=== PATIENT | female | born 1980 | race Caucasian/White ===

== ENCOUNTER 2017-05-24 09:01 | Outpatient (RCR) | payer BC | END 2017-06-26 10:51 | disposition home or self-care (01) | LOC: SPU 09:01 | PROVIDERS: ATTEND Student in an Organized Health Care Education/Training Program | DX: O20.0 Threatened abortion (principal) ==

== ENCOUNTER → 2017-05-24 | Outpatient (CLI) | payer BC | LOC: LAB 12:01 | PROVIDERS: ATTEND Student in an Organized Health Care Education/Training Program | DX: O20.0 Threatened abortion (principal) | CPT/HCPCS: 36415; 84702; 86850; 86900; 86901 ==

== ENCOUNTER → 2017-05-26 | Outpatient (CLI) | payer BC | LOC: LAB 11:40 | PROVIDERS: ATTEND Student in an Organized Health Care Education/Training Program | DX: O20.0 Threatened abortion (principal) | CPT/HCPCS: 36415; 84702 ==

== ENCOUNTER → 2017-09-12 | Outpatient (CLI) | payer BC ==
[~2017-09-12] MED LIST: PREN-127 PO
--- NOTE | 2017-09-12 14:42 | RADIOLOGY IMAGING REPORT ---
FACILITY: [facility] PATIENT NAME: Terri Thurman : 1980 MR: [id number] V: [id number] EXAM DATE: ORDERING PHYSICIAN: CAMMIE LOVETT TECHNOLOGIST: Location: [facility] - [place] Patient: Terri Thurman : 1980 Visit/Account:[id number] Date of Sevice: 09/12/2017 OB ANATOMICAL SURVEY HISTORY: Encounter for multigravida of advanced maternal age COMPARISON: None. TECHNIQUE: Transabdominal imaging was performed for assessment of the fetus and maternal pelvic s tructures. Transvaginal imaging was not performed. FINDINGS: Intrauterine gestations: One. presentation: Transverse with the head towards maternal right. heart rate: 139 bpm. Amniotic fluid volume: Not measured Placenta: Posterior. The distal tip of the placenta appears to cover the cervical os this is best ap preciated on images 77 through 80. Uterus: Gravid, otherwise grossly unremarkable where visualized. Maternal adnexa/ovaries: Grossly unremarkable, ovaries not visualized. Cervix: Grossly long and closed. Gestational Parameters: BPD: 5.19 HC: 20.42 AC: 17.35 FL: 3.89 Average ultrasound age (AUA): 22 weeks/ three days Estimated age based on LMP: 21 weeks/ six days Estimated weight (EFW): 498 grams +/- 73 grams Anatomic Survey: Intracranial structures, 4-chamber heart, stomach, kidneys, urinary bladder, spine, 3-vessel cord and cord insertion are unremarkable. Two upper and two lower extremities visualized. IMPRESSION: Single viable fetus in transverse presentation with an estimated gestational age of 22 weeks and thre e days by measurements. The placenta is posterior however the distal tip of the placenta appears to cover the cervical os as described above. Follow-up imaging recommended for further evaluation of pl acental location Report Dictated By: Mora Weeks MD at 09/12/2017 2:28 PM Report E-Signed By: Mora Weeks MD at 09/12/2017 2:38 PM WSN:AMICIVN
== END ==
LOC: RAD 09:55
PROVIDERS: ATTEND Obstetrics & Gynecology
DX: Z02.9 Encounter for administrative examinations, unspecified (principal)
CPT/HCPCS: 76811

== ENCOUNTER → 2017-10-24 | Outpatient (CLI) | payer BC ==
[~2017-10-24] MED LIST changes: +DIPH0.5D12 IM
[2017-10-24 10:55] LABS: PLATELET COUNT, AUTOMATED 165 K/uL (150-450)
== END ==
LOC: LAB 09:53
PROVIDERS: ATTEND Obstetrics & Gynecology
DX: O09.529 Supervision of elderly multigravida, unspecified trimester (principal)
CPT/HCPCS: 36415; 82950; 85025

== ENCOUNTER → 2017-12-18 | Outpatient (CLI) | payer BC | LOC: LAB 11:09 | PROVIDERS: ATTEND Student in an Organized Health Care Education/Training Program | DX: O09.529 Supervision of elderly multigravida, unspecified trimester (principal) | CPT/HCPCS: 87081 ==

== ENCOUNTER 2018-01-08 10:55 | Inpatient (IN) | payer BC ==
[~2018-01-08] VITALS: Ht 172.7 cm; Wt 67.6 kg
[2018-01-08 11:30] VITALS: BP 122/77; Ht 172.7 cm; Wt 67.6 kg
--- NOTE | 2018-01-08 13:44 | History & Physical ---
History of Present Illness Chief Complaint Contractions History of Present Illness 37yo at 38w5d presents planes of regular uterine contractions. She denies any vaginal bleeding, loss of fluid or preeclampsia symptoms. She reports good movement. record was reviewed, her care is by IMG. History Patient's Blood Type: A Positive Rubella Status: Immune Group B Strep Screen: Negative Obstetrical History: G1: 41wk , 5#9oz G2: 39wk , 6#4oz G3: 2013 SAB G4: Current Past Medical History: PMH: Asthma, eczema PSH: Sinus surgery, left ovarian cyst removal 2012 Allergies: Coded Allergies: No Known Drug Allergies (Unverified , 09/03/17) Social History: No T/E/D. . Family History: Adopted Pt has unknown family hx Med Rec Home Meds Reported Medications Vits W-Ca,Fe,Fa(<1MG) ( VITAMINS) 1 Each Tablet, 1 EACH PO DAILY, TAB 09/02/17 Review of Systems Constitutional: No Fever Neurological: No Syncope Eyes: No Vision Change Cardiovascular: No Chest Pain Respiratory: No Shortness of Breath Gastrointestinal: No Nausea, No Vomiting, No Diarrhea Genitourinary: No Dysuria Musculoskeletal: No Pain Psychiatric: No Depression, No Anxiety Exam General Exam Vital Signs VS reviewed General Apperance: Alert/Awake/No Acute Distress Neuro: No Gross deficits Eyes: Normal Extraocular Movement & Vison Cardiovascular: Regular Rate and Rhythm Respiratory: No Respiratory Distress, Clear to Auscultation Abdomen: Soft, Non-Tender, Non-Distended, Gravid - Non-Tender : Normal Musculoskeletal: No Weakness/Pain Extremities: No Cyanosis,Clubbing or Edema Integumentary: Skin Intact without Lesions or Rash Psychological: Alert & Oriented X3, Appropriate Mood & Affect Cervical Dialation: 4 Cervical Effacement (%): 70 Cervical Consistency: Soft Cervical Position: Mid Station: -2 Presentation: Vertex Uterine Contractions(Q min): 3 Uterine Contraction Strength: Moderate UC Resting Tone: Soft Fetus Feeling Movement?: Yes FHT Category: I Assessment and Plan Problems: (1) Spontaneous onset of labor Assessment & Plan: 37yo at 38w5d presents in labor. Epidural if she desires. Anticipate . (2) 38 weeks gestation of CAMMIE LOVETT MD Jan 08, 2018 13:44
[2018-01-08] MEDS ORDERED: ceFAZolin(*) 2GM/D5W 50ML 50 ML IVPB PRN (13:49)
[2018-01-08] MEDS ORDERED: FAMOTIDINE(*) 20MG/50ML PREMIX 50 ML IVPB PRN (13:49)
[2018-01-08] MEDS ORDERED: OXYTOCIN 30 UNIT/D5LR 500 ML 500 ML IV PRN ×2 (13:49→18:10)
[2018-01-08] MEDS ORDERED: LIDOCAINE/SOD BICARB 8.4% SYR SC PRN (13:50)
[2018-01-08] MEDS ORDERED: fentaNYL CITR 100 MCG/2 ML AMP IVP PRN (13:50)
[2018-01-08] MEDS ORDERED: METOCLOPRAMIDE 10 MG/2 ML SDV IVP PRN (13:50)
[2018-01-08] MEDS ORDERED: LIDOCAINE 1% LOCAL 300 MG/30ML INJ PRN (13:50)
[2018-01-08] MEDS ORDERED: ONDANSETRON 4 MG/2 ML VIAL IVP PRN (13:50)
[2018-01-08] MEDS ORDERED: FLUSH 10 ML SYR IVP PRN (13:50)
[2018-01-08] MEDS ORDERED: BUPIVACAINE 0.5% INJ 30ML VIAL EPI PRN (13:55)
[2018-01-08] MEDS ORDERED: LIDO/EPI 2% MPF 1:200,000 20ML EPI PRN (13:55)
[2018-01-08] MEDS ORDERED: FENTANYL/ROPIVACAINE 100 ML BAG EPI PRN (13:55)
[2018-01-08] MEDS ORDERED: BUPIVACAINE 0.25% MPF INJ EPI PRN (13:55)
[2018-01-08] MEDS ORDERED: fentaNYL CITR 100 MCG/2 ML AMP IT PRN (13:55)
[2018-01-08] MEDS ORDERED: LIDOCAINE/PF 2% 200MG/10ML AMP 200 MG/10 ML AMPUL EPI PRN (13:55)
[2018-01-08 14:12] LABS: PLATELET COUNT, AUTOMATED 132 K/uL (150-450)
[2018-01-08] MEDS ORDERED: EPIDURAL KEYS XX PRN (15:00)
--- NOTE | 2018-01-08 16:12 | Labor Progress Note ---
Labor Subjective Progress Notes Subjective Doing good. Feels lik the contractions aren't as strong any more. Feeling Movement?: Yes Labor Pain: Mild Neurological: No Headache, No Other Eyes: No Visual Disturbances Labor Objective Vital Signs Vital Signs Date Time Temp Pulse Resp B/P (MAP) Pulse Ox O2 Delivery O2 Flow Rate FiO2 01/08/18 11:30 98.7 81 18 122/77 (92) 99 Room Air Vaginal Discharge/Fluid?: Clear Fluid (with amniotomy) Cervical Dialation: 4 Cervical Effacement (%): 70 Cervical Consistency: Moderate Cervical Position: Mid Station: -2 Presentation: Vertex Uterine Contractions(Q min): 5 Uterine Contraction Strength: Mild UC Resting Tone: Soft Fetus Heart Tones: 140 Heart Tone Variabilty: Moderate FHT Accelerations: 15X15 FHT Decelerations: None FHT Category: I Other Result Diagram: 01/08/18 0027 Assessment and Plan DIRECTOR CLINICAL OPERATIONS Assessment: Stable DIRECTOR CLINICAL OPERATIONS Plan: Routine Labor Care Problems: (1) Spontaneous onset of labor Assessment & Plan: S/p Amniotomy. Will recheck in 2 hours. If no change will start oxytocin. Epidural when requested. (2) 38 weeks gestation of DAWSON CORREA Jan 08, 2018 16:11
[2018-01-08] MEDS ORDERED: TERBUTALINE SULF 1 MG/ML VIAL SUBQ PRN (18:10)
[2018-01-08] MEDS: LR(*) 1000 ML BAG 1,000 ML IV SCH ×2 (18:19→20:50)
--- NOTE | 2018-01-08 21:53 | Anesthesia OB Pre-Anes Eval ---
History of Present Illness Anesthesia Start Time: 20:57 OB Anesthesia Diagnosis: induction - medical EDC: Jan 17, 2018 : 4 Para: 2 Pain Ratin Heart Tones: 160 Result Diagram: 01/08/18 1407 Height (Inches): 68.00 Weight (Pounds): 149 BMI Calculated: 22.65 Past Medical History Medical History: no pertinent history Surgical History: noncontributory Previous Anesthesia: epidural Attended Childbirth Classes?: No Hx Anesthesia Reactions: No Hx Family Anesthesia Reaction: No Current Medications: pitocin Home Meds Reported Medications Vits W-Ca,Fe,Fa(<1MG) ( VITAMINS) 1 Each Tablet, 1 EACH PO DAILY, TAB 09/02/17 Allergies: Coded Allergies: No Known Drug Allergies (Unverified , 09/03/17) Anesthesia OB ROS Neurological: No migraines/headaches, No seizures, No neuropathy, No other ENT: Denies Tooth caps, Denies Loose teeth, Denies Chipped teeth, Denies Dentures, Denies Bridges, Denies Retainers, Denies Veneers, Denies Implants, Denies Tongue ring, Denies Other Pulmonary: No asthma, No smoker (pks/day/yrs), No other Airway Class: ll Cardiovascular ROS: No edema, No arrhythmia, No other GI ROS: clear liquids Last Solids Time: 18:00 (broth and liquids) ROS: No Herpes, No STD(s), No Liver Disease, No Renal Disease, No Other Endocrine ROS: No diabetes, No gestational diabetes, No thyroid disorder, No other Musculoskeletal ROS: No low back pain, No low back injury, No scoliosis, No other ASA Classification: 2 Assessment and Plan Anesthesia Plan: AYDEE BOJORQUEZ OPERATING ROOM SPECIALIST Jan 08, 2018 21:53
--- NOTE | 2018-01-08 21:56 | Procedure Note ---
Anesthetic Placement Note Anesthesia Plan: LEB Permit for Anesthesia Signed: Yes Anesthesia Prep: Chlorhexidine Interspace: L 4-5 Local Anesthetic: 1% Lidocaine, 25 Gauge Needle Amount Local - cc's: 3 Anesthesia Needle: 17g Touhlucretia/Cecilleff Anesthesia Attempts: 1 Loss of Resistance: Normal Saline Depth of CORRINE (cm): 6 Epidural Needle Placement: No CSF, No Blood, No Parasthesia Catheter Insertion (cm): 12 Catheter Type: Garcia - Spring Wound Epidural Dressing: Tegaderm, Tape, Adhesive [place] Anesthesia Tray: Lot Number ([id number]), Expiration Date (2019-01-03), Reference Number ([id number]) Anesthesia Medications: Epidural Test Dose: 1.5 Lido/Epi (1:200,000), Dose - mL (3), Time (2111), Negative Epidural Loading Dose: 0.25% Marcaine, Dose - ml (10), Time (2125) Epidural Infusion: 0.2% Ropivicaine, With Fentanyl 2mcg/ml, Start Time: (2130) Epidural Pump Setting: Bolus Dose - mL (4), Lockout - Minutes (20), Maintenance Rate - mL/hr (10), Maximum per Hour - mL (22) Complications: None AYDEE PERSON CUSTOM BIKE BUILDER Jan 08, 2018 21:56
[2018-01-09] MEDS: LR(*) 1000 ML BAG 1,000 ML IV SCH (00:25)
--- NOTE | 2018-01-09 01:22 | Anesthesia Progress Note ---
Progress/Maintenance Anesthesia Note Date: Jan 08, 2018 Anesthesia Note Time: 23:30 Pain Intensity: 0 Pump: On Pump Rate (ML/HR): 5 (10 ml/hr to 5 ml/hr) Motor Level: Bending Knees-Bilateral Dilatation: 8 Position: Left, Tilt AYDEE PERSON CRNA Jan 09, 2018 01:22
--- NOTE | 2018-01-09 01:24 | Anesthesia Progress Note ---
Progress/Maintenance Anesthesia Note Time: 00:30 Pump: On Pump Rate (ML/HR): 2 (From 5 to 2 ml/hr) Dilatation: 9 Position: Left, Tilt AYDEE PERSON CRNA Jan 09, 2018 01:24
[2018-01-09] MEDS ORDERED: LANOLIN OINT 7 GM TUBE TP PRN (01:25)
[2018-01-09] MEDS ORDERED: MEASLES,MUMP,RUBELLA VAC 0.5ML SC ONE (01:25)
[2018-01-09] MEDS ORDERED: GLYCERIN/WITCH HAZEL LEAF 1 PK TOP PRN (01:25)
[2018-01-09] MEDS ORDERED: ACETAMINOPHEN 325 MG TAB PO PRN (01:25)
[2018-01-09] MEDS ORDERED: HYDROCORTISONE 2.5% CR 30GM TB PR PRN (01:25)
[2018-01-09] MEDS ORDERED: MAGNESIUM HYDROXIDE* 30ML UDCP PO PRN (01:25)
[2018-01-09] MEDS ORDERED: BENZOCAINE 20% 60 ML BTL TP PRN (01:25)
[2018-01-09] MEDS ORDERED: DIPHTH/TETANUS/ACEL. PERTUSSIS IM ONE (01:25)
[2018-01-09] MEDS ORDERED: INFLUENZA VIRUS VAC 0.5 ML SYR IM ONLY ONE (01:25)
[2018-01-09] MEDS ORDERED: APAP/HYDROCODONE 325/5 TAB PO PRN (01:25)
--- NOTE | 2018-01-09 01:25 | Anesthesia Progress Note ---
Progress/Maintenance Anesthesia Note Time: 13:24 Pump: Off (Viable ) Anesthesia Treatment: Viable . Pump turned off and catheter line capped. Assessment and Plan Anesthesia Plan: LEB Anesthesia Stop Time: 13:[address] LIGHT REPAIRER HELPER Jan 09, 2018 01:25
--- NOTE | 2018-01-09 01:34 | OB Delivery Note ---
Delivery Note Vaginal Delivery Type: Spont. Vaginal Delivery Delivery Date: Jan 09, 2018 Delivery Time: 01:05 Estimated Gestational Age(wks): 38.6 Delivery Anesthesia: Epidural Infant Sex: Male Weight (gms): 3208 (7#1oz) Childress Apgars: 1 Minute (8), 5 Minute (9) Repair Needed: 1st Degree Estimated Blood Loss: 400 Delivery Complications: Nuchal Cord (X2) Equipment Maintenance Technician in Attendence: DAWSON Ramirez DO Jan 09, 2018 01:34
[2018-01-09 03:00] VITALS: BP 130/61
[2018-01-09] MEDS: IBUPROFEN 800 MG TAB PO SCH ×4 (05:48→21:18)
[2018-01-09 08:45] VITALS: BP 126/74
[2018-01-09] MEDS ORDERED: IBUPROFEN 800 MG TAB PO SCH (09:00)
[2018-01-09] MEDS: DOCUSATE CALCIUM 240 MG CAP PO SCH ×2 (09:01→21:17)
--- NOTE | 2018-01-09 16:23 | DELIVERY NOTE ---
DELIVERY DATE: January 09, 2018 SURGEON: Ambrose Kay D.O. ANESTHESIA: Epidural ] PREOPERATIVE DIAGNOSES 1. A 37-year-old at 38-6/7 weeks gestation. 2. Labor. 3. Advanced maternal age. POSTOPERATIVE DIAGNOSES 1. A 37-year-old at 38-6/7 weeks gestation. 2. Labor. 3. Advanced maternal age. PROCEDURE Spontaneous vaginal delivery with repair of first degree midline laceration. COMPLICATIONS Nuchal x2, reduced after delivery. CONDITION Stable x2. Mother and infant remained in the LADR.. COUNTS Correct for all needles, laps, sponges and instruments. ESTIMATED BLOOD LOSS 400 mL FINDINGS Live born male infant at 0105 hours on January 09, 2018 with Apgars of 8 and 9, weighing 3208 g, 7 pounds 1 ounce. Three vessel cord, intact placenta, over first degree midline laceration. LABOR SUMMARY[ The patient is a 37-year-old 4, para 2 at 38-6/7 weeks gestation who presented to labor and delivery with the chief complaint of painful contractions. She was initially checked and found to be 3 cm. She was rechecked 1-2 hours later and was noted to have mid cervical change to 4 cm. She was admitted with the diagnosis of labor. She did undergo amniotomy and did progress to complete and +2 station. During the labor course the contractions did slow down with significant IV hydration and after the epidural, so she did require some oxytocin to help with hypotonic contractions. There were occasional variables that were alleviated with maternal position changes, never requiring an amnioinfusion. Once the patient was complete, she was prepped for delivery and the delivery team was called and assembled. DELIVERY SUMMARY The patient was placed in the dorsal lithotomy position, prepped and draped in the usual sterile manner. Upon maternal pushing the head was delivered under a controlled manner, followed by the anterior shoulder with gentle downward motion, the posterior shoulder with gentle upward motion, with the remainder of the 's body delivering spontaneously. There was a nuchal cord x2 that was reduced after delivery. At this point a vigorous male infant was placed on the maternal abdomen where the mouth and nose were bulb suctioned and then continued to be monitored by the nursing staff. After 2-1/2 minutes post delivery the cord was clamped x2 and cut by the infant's father. Cord blood gases were then obtained. The placenta delivered spontaneously with gentle contraction. Oxytocin was infused to help with uterine tone. The uterus was massaged and deemed firm. Upon inspection of the perineum, vagina, cervix and labia it was noted that there was a first degree midline laceration. This was repaired with a 3-0 Vicryl in the usual manner with laceration repaired and hemostatic. The patient was then cleaned, the labor bed was reassembled and the mother and were allowed to continue to shelley. VENESSAD
[2018-01-09 16:40] VITALS: BP 134/70
--- NOTE | 2018-01-09 17:15 | OB/GYN Progress Note ---
OB Subjective Progress Notes Subjective Doing good PPD # 1. Cramping with . Bleeding appropriate. Pain controlled with po pain medications. GI: NEG Nausea, NEG Vomiting, NEG Flatus, NEG Bowel Movement : Voiding Well, Vaginal Bleeding, Moderate Pain: Mild, Tolerating PO Pain Meds Neurological: No Headache, No Other Eyes: No Visual Disturbances OB Objective Physical Exam Vital Signs Date Time Temp Pulse Resp B/P (MAP) Pulse Ox O2 Delivery O2 Flow Rate FiO2 01/09/18 08:45 97.8 85 18 126/74 (91) Room Air 01/09/18 03:00 95 Intake and Output 01/09/18 06:59 Intake Total 2700 ml Output Total 1400 ml Balance 1300 ml IV Total 2700 ml Output Urine Total 1400 ml # Voids 2 General Appearance: Alert/Awake/No Acute Distress Neurological: No Gross deficits Eyes: Normal Extraocular Movement & Vison Cardiovascular: Normal Rhythm & Peripheral Pulses Respiratory: No Respiratory Distress, Clear to Auscultation Abdomen: Fundus Firm Extremities: No Cyanosis,Clubbing or Edema Integumentary: Skin Intact without Lesions or Rash Psychological: Alert & Oriented X3, Appropriate Mood & Affect Result Diagram: 01/08/18 1407 Assessment and Plan SOLVENT PLANT OPERATOR Assessment: Stable SOLVENT PLANT OPERATOR Plan: Routine Post- Care Problems: (1) Spontaneous onset of labor Status: Resolved (2) 38 weeks gestation of Status: Resolved (3) care and examination immediately after delivery Assessment & Plan: Doing good this afternoon. Continue post management. Follow up in AM. Consider discharge tomorrow it meeting criteria. DAWSON CORREA DO Jan 09, 2018 17:15
[2018-01-09] MEDS ORDERED: IBUP800T37 PO (17:17)
[2018-01-09] MEDS ORDERED: LOR5/325 PO (17:17)
--- NOTE | 2018-01-09 17:19 | OB/GYN Discharge Summary ---
Discharge Summary Reason for Hosp/Final Diag: (1) Spontaneous onset of labor Status: Resolved (2) 38 weeks gestation of Status: Resolved (3) care and examination immediately after delivery Hospital Course & Plan: Pt presented in Labor and progressed to complete and delivered a live born male infant. See delivery note for details of procedure and labor. Pt remained in the hospital for her post care. Once she met post care goals she desired to be discharged home with her . Lates Vital Signs Vital Signs Date Time Temp Pulse Resp B/P (MAP) Pulse Ox O2 Delivery O2 Flow Rate FiO2 01/09/18 08:45 97.8 85 18 126/74 (91) Room Air 01/09/18 03:00 95 Weight (Pounds): 149 Result Diagram: 01/08/18 1407 Condition: Improved Discharge: Home Home Meds Active Scripts Ibuprofen (IBUPROFEN) 800 Mg Tablet, 800 MG PO Q8H@0600,1400,2200, #20 TAB 0 Refills Prov:DAWSON CORREA DO 01/09/18 Hydrocodone Bit/Acetaminophen (HYDROCODON-ACETAMINOPHEN 5-325) 1 Each Tablet, 1- 2 EACH PO Q4H PRN for PAIN, #20 TAB 0 Refills Prov:DAWSON CORREA DO 01/09/18 Reported Medications Vits W-Ca,Fe,Fa(<1MG) ( VITAMINS) 1 Each Tablet, 1 EACH PO DAILY, TAB 09/02/17 Follow up with: [facility] [phone], Dr. Correa [phone] Follow up in: 6 wks PP or PO Discharge Diet: As Tolerates, Resume Prior Admit Diet, Increase Fluid Intake Discharge Activity: As Tolerates, Pelvic Rest DAWSON CORREA DO Jan 09, 2018 17:19
[2018-01-09 20:40] VITALS: BP 121/76
[2018-01-09 23:15] VITALS: BP 106/61
[2018-01-10] MEDS: IBUPROFEN 800 MG TAB PO SCH (05:41)
--- NOTE | 2018-01-10 07:18 | OB/GYN Progress Note ---
OB Subjective Progress Notes Subjective Doing good this morning. Reports bleeding is appropriate. Tolerating PO intake. Pain controlled with po pain medications. Bleeding is appropriate. GI: NEG Nausea, NEG Vomiting, NEG Flatus, NEG Bowel Movement : Voiding Well, Vaginal Bleeding, Moderate Pain: Mild Neurological: No Headache, No Other Eyes: No Visual Disturbances OB Objective Physical Exam Vital Signs Date Time Temp Pulse Resp B/P (MAP) Pulse Ox O2 Delivery O2 Flow Rate FiO2 01/09/18 23:15 97.9 82 16 106/61 (76) 96 Room Air Intake and Output 01/10/18 06:59 Intake Total 360 ml Balance 360 ml Intake Oral 360 ml # Voids 2 General Appearance: Alert/Awake/No Acute Distress Neurological: No Gross deficits Eyes: Normal Extraocular Movement & Vison Cardiovascular: Normal Rhythm & Peripheral Pulses Respiratory: No Respiratory Distress, Clear to Auscultation Abdomen: Fundus Firm Extremities: No Cyanosis,Clubbing or Edema Integumentary: Skin Intact without Lesions or Rash Psychological: Alert & Oriented X3, Appropriate Mood & Affect Result Diagram: 01/10/18 0540 Assessment and Plan QUALITY LAB TECHNICIAN Plan: Routine Post- Care, Discharge Home Today Problems: (1) Spontaneous onset of labor Status: Resolved (2) 38 weeks gestation of Status: Resolved (3) care and examination immediately after delivery Assessment & Plan: Doing good PPD #1.5. Plan for discharge today with infant. Follow up in 2-4 weeks for depression concerns as necessary. 6 weeks for post appt. DAWSON CORREA DO Jan 10, 2018 07:17
[2018-01-10 07:25] VITALS: BP 116/74
[2018-01-10] MEDS: DOCUSATE CALCIUM 240 MG CAP PO SCH (09:06)
--- NOTE | 2018-01-10 10:45 | Anesthesia Post Eval Note ---
Anesthesia Post Eval Note WNL. Temp WNL. Pt able to participate in Eval: Yes Cardiovascular Status: Satisfactory Respiratory Status: Satisfactory Pain Managment: Satisfactory PO Nausea/Vomiting: Satisfactory Temperature Management: Satisfactory Mental Status: Satisfactory Post-Op Hydration Status: Satisfactory Anesthesia Type: LEB Anesthesia Tolerance: patient tolerated well. Pt. up ambulating. VSS. Temp wnl. Pt. states small amount of lower back pain at catheter site not requiring pain medications. AYDEE PERSON VERIFICATION MANAGER Jan 10, 2018 10:45
== END 2018-01-10 12:20 | disposition home or self-care (01) | DRG 775 ==
LOC: OB 10:55
PROVIDERS: ADMIT Obstetrics & Gynecology; ATTEND Obstetrics & Gynecology
PROC: 10E0XZZ Delivery of Products of Conception, External Approach (ICD-10-PCS; principal; 2018-01-08)
PROC: 10907ZC Drainage of Amniotic Fluid, Therapeutic from Products of Conception, Via Natural or Artificial Opening (ICD-10-PCS; 2018-01-08)
PROC: 0HQ9XZZ Repair Perineum Skin, External Approach (ICD-10-PCS; 2018-01-08)
DX: O69.81X0 Labor and delivery complicated by cord around neck, without compression, not applicable or unspecified (principal); O70.0 First degree perineal laceration during delivery; Z3A.38 38 weeks gestation of pregnancy; Z37.0 Single live birth
CPT/HCPCS: 36415; 85025; 85027; 86850; 86900; 86901; J2590; J3010; J7120; S0020